=== PATIENT | male | born 1945 | race Caucasian/White ===

== ENCOUNTER 2020-01-02 15:20 | Observation (INO) | payer MEDICARE ==
[~2020-01-02] VITALS: Ht 177.8 cm; Wt 113.9 kg
[~2020-01-02 15:20] MED LIST: AMLODIPINE10 MG PO; ASPI-COR81 M1 PO; CRESTOR10 M1 PO; Carafate1 GM/10 ML PO; FLOMAX0.4 MG PO; FLUOXETINE20 MG PO; FLUOXETINE40 MG PO; FOLIC ACID0.4 MG PO; LOPRESSOR; LOPRESSOR25 MG PO; METRONIDAZOLE500 MG PO; MOBIC7.5 MG PO; PLAVIX75 MG PO; PRILOSEC10 MG PO; PROTONIX40 MG PO; TRAMADOL50 MG PO; TYLENOL500 MG PO; VITAMIN B125000 MCG PO; VITAMIN D350 MC2 PO
[2020-01-02 15:30] VITALS: BP 166/96
[2020-01-02 16:05] LABS: BASO # 0.1 10*3/uL (0.0-0.1); BASO % 0.6 % (0.0-1.0); EOS # 0.1 10*3/uL (0.0-0.4); EOS % 1.3 % (1.0-4.0); HEMATOCRIT 48.6 % (42.0-52.0); LYMPH # 1.5 10*3/uL (1.3-4.4); LYMPH % 16.9 % (27.0-41.0); MEAN CELL VOLUME 87.9 fl (80.0-94.0); MEAN CORPUSCULAR HGB 28.6 pg (27.0-31.0); MEAN CORPUSCULAR HGB CONC 32.5 g/dl (33.0-37.0); MEAN PLATELET VOLUME 9.7 fl (9.6-12.3); MONO # 0.7 10*3/uL (0.1-1.0); MONO % 8.2 % (3.0-9.0); NEUT # 6.3 10*3/uL (2.3-7.9); NEUT % 72.4 % (47.0-73.0); PLATELET COUNT AUTOMATED 249 10*3/uL (130-400); RED BLOOD COUNT 5.53 10*6/uL (4.50-5.90); RED CELL DISTRI WIDTH 12.5 % (0-14.5); WHITE BLOOD COUNT 8.7 10*3/uL (4.8-10.8)
[2020-01-02 16:20] LABS: LIPASE 102 U/L (73-393)
[2020-01-02 16:22] LABS: ACT PARTIAL THROMBO TIME 30.2 SECONDS (20.0-32.1); ALKALINE PHOSPHATASE 107 U/L (45-117); BUN 25 mg/dl (7-24); CHLORIDE 108 mmol/L (98-107); CREATININE 1.29 mg/dL (0.70-1.30); INTERNATIONAL NORM RATIO 0.9 (2.0-3.5); POTASSIUM 3.8 mmol/L (3.5-5.1); SGOT/AST 23 IU/L (3-35); SGPT/ALT 39 U/L (12-78); SODIUM 140 mmol/L (136-145); TOTAL PROTEIN 7.8 gm/dL (6.4-8.2)
[2020-01-02 16:24] LABS: TROPONIN I < 0.015 ng/ml (<0.045)
[2020-01-02 16:48] VITALS: BP 128/76
[2020-01-02 17:32] VITALS: BP 156/81
--- NOTE | 2020-01-02 18:27 | NUR ---
A 74, admitted to , under the services of MICHELLE Benito DO with a diagnosis of SOB, FATIGUE, WEAKNESS. Chief complaint is DIZZINESS. Patient arrived via ambulatory from ER. Monitor applied. Initial assessment completed. Vital signs taken and recorded. MICHELLE BENITO DO notified of admission to the unit. Orders received. See assessment for past medical history, medications and allergies. Patient and/or family oriented to unit. [facility] visitation policy reviewed. Clothing/patient valuable form completed. DHRUV MYERS
[2020-01-02 18:57] VITALS: BP 157/81
--- NOTE | 2020-01-02 18:57 | NUR ---
ORTHOSTATIC BP NEGATIVE. SEE ASSESSMENT.
[2020-01-02] MEDS ORDERED: IMDUR SA60 M1 PO (19:03)
[2020-01-02] MEDS ORDERED: ALDACTONE25 M1 PO (19:28)
[2020-01-02] MEDS ORDERED: PAXIL30 M2 PO (19:29)
[2020-01-02] MEDS ORDERED: FINASTERIDE5 M1 PO (19:29)
[2020-01-02] MEDS ORDERED: CARAFATE1 G1 PO (19:30)
[2020-01-02] MEDS ORDERED: LAMICTAL100 MG PO (19:32)
[2020-01-02] MEDS ORDERED: GABAPENTIN100 M2 PO ×2 (19:32)
[2020-01-02] MEDS ORDERED: LITHIUM CARBON150 MG PO (19:33)
[2020-01-02] MEDS ORDERED: TORSEMIDE20 MG PO (19:34)
[2020-01-02] MEDS ORDERED: ASPIRIN81 M1 PO (19:35)
[2020-01-02] MEDS ORDERED: PROBIOTIC1 EAC2 PO (19:38)
[2020-01-02] MEDS ORDERED: VITAMIN C1000 M5 PO (19:38)
--- NOTE | 2020-01-02 19:40 | NUR ---
RESIDENT INFORMED HOME MED REC WAS UPDATED. SAID SHE WOULD ORDER THEM.
[2020-01-02 20:00] VITALS: BP 141/76
--- NOTE | 2020-01-02 20:40 | NUR ---
SITTING UP IN CHAIR IN ROOM. BODY ALARM INTACT DUE TO PATIENT C/O BEING DIZZY W/EXERTION & SOB MORE SO OVER THE LAST SEVERAL WEEKS. PT. [id number]; PLEASANT. HEP LOCK INTACT TO LEFT ANTECUBITAL; SITE ASYMPTOMATIC. PT. VOICES NO C/O AT THIS TIME; DENIES PAIN. CALL LIGHT WITHIN REACH.
--- NOTE | 2020-01-02 20:45 | NUR ---
CONSULT CALLED & MESSAGE LEFT WITH ANSWERING SERVICE FOR DR. MOSER.
--- NOTE | 2020-01-02 21:00 | NUR ---
, ARIN, CALLED. HAD PASSCODE & UPDATED ON PT. STATUS.
[2020-01-03] VITALS: BP 155/83
--- NOTE | 2020-01-03 02:00 | NUR ---
SITTING UP IN CHAIR IN ROOM. VOICES NO C/O. CALL LIGHT WITHIN REACH.
--- NOTE | 2020-01-03 06:00 | NUR ---
TOOK PO MED WITHOUT DIFFICULTY. VOICES NO C/O PAIN OR DISCOMFORT AT THIS TIME. CALL LIGHT WITHIN REACH.
[2020-01-03 06:02] LABS: BASO # 0.1 10*3/uL (0.0-0.1); BASO % 0.6 % (0.0-1.0); EOS # 0.2 10*3/uL (0.0-0.4); EOS % 2.1 % (1.0-4.0); HEMATOCRIT 46.4 % (42.0-52.0); LYMPH # 2.3 10*3/uL (1.3-4.4); LYMPH % 23.1 % (27.0-41.0); MEAN CELL VOLUME 88.9 fl (80.0-94.0); MEAN CORPUSCULAR HGB 28.5 pg (27.0-31.0); MEAN CORPUSCULAR HGB CONC 32.1 g/dl (33.0-37.0); MEAN PLATELET VOLUME 9.7 fl (9.6-12.3); MONO # 0.9 10*3/uL (0.1-1.0); MONO % 9.5 % (3.0-9.0); NEUT # 6.3 10*3/uL (2.3-7.9); NEUT % 64.2 % (47.0-73.0); PLATELET COUNT AUTOMATED 238 10*3/uL (130-400); RED BLOOD COUNT 5.22 10*6/uL (4.50-5.90); RED CELL DISTRI WIDTH 12.8 % (0-14.5); WHITE BLOOD COUNT 9.8 10*3/uL (4.8-10.8)
[2020-01-03 06:22] LABS: ALBUMIN 3.7 gm/dl (3.1-4.5); ALKALINE PHOSPHATASE 97 U/L (45-117); BUN 27 mg/dl (7-24); CHLORIDE 108 mmol/L (98-107); CHOLESTEROL 113 mg/dL (<200); CREATININE 1.23 mg/dL (0.70-1.30); FREE T4 0.89 ng/dl (0.76-1.46); HDL CHOLESTEROL 29 mg/dl (40-60); LDL CHOLESTEROL 51 mg/dL (9-159); POTASSIUM 3.8 mmol/L (3.5-5.1); SGOT/AST 18 IU/L (3-35); SGPT/ALT 34 U/L (12-78); SODIUM 139 mmol/L (136-145); TOTAL PROTEIN 7.1 gm/dL (6.4-8.2); TRIGLYCERIDES 165 mg/dl (<150); VLDL CHOLESTEROL 33 mg/dL (6-40)
[2020-01-03 07:50] LABS: VITAMIN D, 25-HYDROXY 36.4 ng/mL (30-100)
[2020-01-03 08:00] VITALS: BP 132/74
--- NOTE | 2020-01-03 10:05 | NUR ---
Hand I Cutter in to talk to patient in Room. Patient states that he lives at home with his and his Children live next door. He is independent in his care and does not require SNF or Home Health at this time. There are 10 steps in the home. Physician: Zaina Monae Pharmacy: [facility] Home health services: Declined Home Health at this time Patient's level of ADLs: Independent, still drives Patient has working utilities: Yes DME: None Follow-up physician's appointment after d/c: Per Hospitalist Office Does patient want to access PORTAL?: Not Interested Discharge plan is for Pt. to return home with his , he is independent in his own care and voiced no needs at this time. Patient States his will provide Transportation at discharge. RAJ PIERSON LPN, Hand I Cutter.
--- NOTE | 2020-01-03 11:05 | NUR ---
PT COMPLAINS OF DIZZINESS AND SWEATING, WILL OBTAIN ORTHOSTATIC BLOOD PRESSURES AND NOTIFY MD. CALL LIGHT WITHIN REACH.
--- NOTE | 2020-01-03 11:15 | NUR ---
DR. ALFARO MADE AWARE OF PT POSITIVE ORTHOSTATIC BLOOD PRESSURE RESULTS AND BEING SYMPTOMATIC. NEW ORDERS OBTAINED, PT AWARE OF NEW ORDERS AND IN AGREEMENT.
[2020-01-03 12:00] VITALS: BP 121/76
--- NOTE | 2020-01-03 12:50 | NUR ---
CALLED ANSWERING SERVICE TO MAKE HIM AWARE OF + ORTHOSTATIC BP AND EKG SHOWING ST DEVIATION. AWAITING RETURN CALL.
--- NOTE | 2020-01-03 12:55 | NUR ---
DR. MOSER RETURNED PHONE CALL, STATES KAJAL HIM AND HE WILL BE IN LATER TODAY TO SEE PT.
[2020-01-03 16:00] VITALS: BP 146/86
[2020-01-03 20:00] VITALS: BP 123/67
--- NOTE | 2020-01-03 20:00 | NUR ---
AWAKE & ALERT SITTING UP IN CHAIR. VOICES NO C/O AT THIS TIME. CALL LIGHT WITHIN REACH.
--- NOTE | 2020-01-03 22:00 | NUR ---
TOOK PO MEDICATIONS WITHOUT DIFFICULTY. VOICES NO C/O AT THIS TIME. CALL LIGHT WITHIN REACH.
[2020-01-04] VITALS: BP 133/74
[2020-01-04 08:00] VITALS: BP 154/65
[2020-01-04 12:00] VITALS: BP 129/78
[2020-01-04 16:00] VITALS: BP 125/75
--- NOTE | 2020-01-04 19:50 | NUR ---
PT SEEN AND ASSESSED. PT DENIES ANY C/O AT THIS TIME. PT INSTRUCTED ON LEXISCAN FOR TOMORROW AND THAT HE WILL BE NPO AFTER MIDNIGHT. PT VERBALIZES HIS UNDERSTANDING OF THIS EDUCATION.
[2020-01-04 20:00] VITALS: BP 141/66
[2020-01-05] VITALS: BP 141/74
--- NOTE | 2020-01-05 02:18 | NUR ---
24 HR chart check completed.
[2020-01-05 08:00] VITALS: BP 152/80
--- NOTE | 2020-01-05 09:00 | NUR ---
case managment visits with patient, he states he will return home when discharged. denies any home needs at this time, case management will follow
--- NOTE | 2020-01-05 11:20 | NUR ---
INFORMED CONSENT SIGNED FOR LEXISCAN STRESS TEST WITH DR. MOSER. RESTING EKG SINUS BRADYCARDIA, HR 56, BP 132/74. PULSE OX 97% AND LUNGS CLEAR BILATERALLY. COMPLETED ONE MINUTE OF LEXISCAN PROTOCOL RECEIVING LEXISCAN 0.4MG OVER 10 SEC[address]DS. NO ARRHYTHMIAS OR ST CHANGES NOTED. PT C/O SOB. LAST RECOVERY HR 74, BP 146/78. WAITING NUCLEAR SCANNING IN STABLE CONDITION.
[2020-01-05 12:00] VITALS: BP 145/82
--- NOTE | 2020-01-05 12:09 | NUR ---
PHYSICAL THERAPY Attempted PT evaluation this date with pt off 4th floor at stress test. Will attempt at later time. Ivy Campbell, PT
--- NOTE | 2020-01-05 13:07 | NUR ---
PATIENT BACK UP FROM STRESS TEST. MORNING MEDS TO BE GIVEN. DIET ORDER PUT BACK IN PER DR NEWBY
--- NOTE | 2020-01-05 14:00 | NUR ---
Occupational Therapy referral received and lengthly screen completed. Patient c/o SOB and dizziness as his reason for admission. He reports that "this has been going on for a while" but recently became worse. He is able to ambulate to bathroom and within his room independently. He is performing all his own self care including showering at independent level. He does report that when he has a "spell" he "sits and rests as he has been doing for a while now." Patient is alert, oriented and plans to return home upon d/c. At this time no further OT indicated. Discharge OT referral. Patient in agreement with this plan. Thank you. Fina Carlos OTr/L
[2020-01-05] MEDS ORDERED: METOPROLOL SUCC50 M1 PO (15:09)
--- NOTE | 2020-01-05 15:50 | NUR ---
Discharge instructions reviewed with patient/family. Patient receptive and verbalizes understanding. Follow-up care arranged. Written instructions given to patient/family. PRAVEENA AJ
== END 2020-01-05 17:45 | disposition home or self-care (01) ==
LOC: ED 15:20 → EDHOLD 16:54 → 4E 17:30 → EDHOLD 17:34 → 4E 17:46
PROVIDERS: Emergency Medicine; Internal Medicine; ADMIT Family Medicine; ATTEND Family Medicine
DX: R06.02 Shortness of breath (principal); R53.1 Weakness; R42 Dizziness and giddiness; E78.00 Pure hypercholesterolemia, unspecified; I11.0 Hypertensive heart disease with heart failure; I50.30 Unspecified diastolic (congestive) heart failure; R79.89 Other specified abnormal findings of blood chemistry; J44.9 Chronic obstructive pulmonary disease, unspecified; I25.10 Atherosclerotic heart disease of native coronary artery without angina pectoris; E78.5 Hyperlipidemia, unspecified; F32.9 Major depressive disorder, single episode, unspecified; K21.9 Gastro-esophageal reflux disease without esophagitis; N40.0 Benign prostatic hyperplasia without lower urinary tract symptoms

== ENCOUNTER 2020-01-21 13:43 | Observation (INO) | payer MEDICARE ==
[~2020-01-21] VITALS: Ht 177.8 cm; Wt 116.8 kg
[~2020-01-21 13:43] MED LIST changes: +ALDACTONE25 M1 PO; +ASPIRIN81 M1 PO; +CARAFATE1 G1 PO; +FINASTERIDE5 M1 PO; +GABAPENTIN100 M2 PO; +IMDUR SA60 M1 PO; +LAMICTAL100 MG PO; +LITHIUM CARBON150 MG PO; +METOPROLOL SUCC50 M1 PO; +PAXIL30 M2 PO; +PROBIOTIC1 EAC2 PO; +TORSEMIDE20 MG PO; +VITAMIN C1000 M5 PO
[2020-01-21 13:49] VITALS: BP 144/68
[2020-01-21 14:06] LABS: BASO # 0.1 10*3/uL (0.0-0.1); BASO % 0.6 % (0.0-1.0); EOS # 0.2 10*3/uL (0.0-0.4); EOS % 2.4 % (1.0-4.0); HEMATOCRIT 46.4 % (42.0-52.0); LYMPH # 1.6 10*3/uL (1.3-4.4); LYMPH % 18.2 % (27.0-41.0); MEAN CELL VOLUME 89.7 fl (80.0-94.0); MEAN CORPUSCULAR HGB 28.2 pg (27.0-31.0); MEAN CORPUSCULAR HGB CONC 31.5 g/dl (33.0-37.0); MEAN PLATELET VOLUME 9.9 fl (9.6-12.3); MONO # 0.6 10*3/uL (0.1-1.0); MONO % 6.8 % (3.0-9.0); NEUT # 6.1 10*3/uL (2.3-7.9); NEUT % 71.5 % (47.0-73.0); PLATELET COUNT AUTOMATED 218 10*3/uL (130-400); RED BLOOD COUNT 5.17 10*6/uL (4.50-5.90); RED CELL DISTRI WIDTH 12.5 % (0-14.5); WHITE BLOOD COUNT 8.5 10*3/uL (4.8-10.8)
[2020-01-21 14:23] LABS: ALBUMIN 3.7 gm/dl (3.1-4.5); ALKALINE PHOSPHATASE 102 U/L (45-117); BUN 20 mg/dl (7-24); CHLORIDE 109 mmol/L (98-107); CREATININE 1.31 mg/dL (0.70-1.30); POTASSIUM 4.6 mmol/L (3.5-5.1); SGOT/AST 18 IU/L (3-35); SGPT/ALT 35 U/L (12-78); SODIUM 142 mmol/L (136-145); TOTAL PROTEIN 7.3 gm/dL (6.4-8.2)
[2020-01-21 14:24] LABS: TROPONIN I < 0.015 ng/ml (<0.045)
[2020-01-21 14:40] VITALS: BP 136/56
[2020-01-21 14:40] LABS: ACT PARTIAL THROMBO TIME 30.6 SECONDS (20.0-32.1)
[2020-01-21 16:20] VITALS: BP 153/56
[2020-01-21 17:40] VITALS: BP 157/62
[2020-01-21] MEDS ORDERED: VENT7GM INH (17:58)
[2020-01-21 18:15] VITALS: BP 137/53
[2020-01-21] MEDS ORDERED: LOPRESSOR50 M1 PO (18:50)
[2020-01-21 20:35] VITALS: BP 120/64
[2020-01-22 05:30] VITALS: BP 154/58
[2020-01-22 07:28] LABS: BASO # 0.1 10*3/uL (0.0-0.1); BASO % 0.6 % (0.0-1.0); EOS # 0.2 10*3/uL (0.0-0.4); EOS % 2.3 % (1.0-4.0); HEMATOCRIT 46.7 % (42.0-52.0); LYMPH # 2.2 10*3/uL (1.3-4.4); LYMPH % 25.3 % (27.0-41.0); MEAN CELL VOLUME 89.1 fl (80.0-94.0); MEAN CORPUSCULAR HGB 28.8 pg (27.0-31.0); MEAN CORPUSCULAR HGB CONC 32.3 g/dl (33.0-37.0); MEAN PLATELET VOLUME 10.1 fl (9.6-12.3); MONO # 0.7 10*3/uL (0.1-1.0); MONO % 8.3 % (3.0-9.0); NEUT # 5.4 10*3/uL (2.3-7.9); NEUT % 62.9 % (47.0-73.0); PLATELET COUNT AUTOMATED 211 10*3/uL (130-400); RED BLOOD COUNT 5.24 10*6/uL (4.50-5.90); RED CELL DISTRI WIDTH 12.5 % (0-14.5); WHITE BLOOD COUNT 8.5 10*3/uL (4.8-10.8)
[2020-01-22 07:38] LABS: ACT PARTIAL THROMBO TIME 31.2 SECONDS (20.0-32.1)
[2020-01-22 07:46] LABS: ALBUMIN 3.6 gm/dl (3.1-4.5); ALKALINE PHOSPHATASE 93 U/L (45-117); BUN 24 mg/dl (7-24); CHLORIDE 108 mmol/L (98-107); CHOLESTEROL 116 mg/dL (<200); CREATININE 1.19 mg/dL (0.70-1.30); HDL CHOLESTEROL 36 mg/dl (40-60); POTASSIUM 3.9 mmol/L (3.5-5.1); SGOT/AST 19 IU/L (3-35); SGPT/ALT 33 U/L (12-78); SODIUM 141 mmol/L (136-145); TOTAL PROTEIN 7.1 gm/dL (6.4-8.2)
[2020-01-22 07:52] LABS: FREE T4 0.85 ng/dl (0.76-1.46); TRIGLYCERIDES 143 mg/dl (<150); VLDL CHOLESTEROL 29 mg/dL (6-40)
[2020-01-22 08:00] VITALS: BP 118/50
[2020-01-22 08:39] LABS: VITAMIN D, 25-HYDROXY 45.8 ng/mL (30-100)
[2020-01-22 12:00] VITALS: BP 121/54
[2020-01-22 14:03] LABS: LDL CHOLESTEROL 51 mg/dL (9-159)
[2020-01-22 15:54] VITALS: BP 124/62
[2020-01-22 16:00] VITALS: BP 124/58
== END 2020-01-22 20:18 | disposition home or self-care (01) ==
LOC: ED 13:43 → EDHOLD 16:01 → 4E 18:07
PROVIDERS: Emergency Medicine; Hospitalist; ADMIT Family Medicine; ATTEND Family Medicine
DX: R07.89 Other chest pain (principal); R00.1 Bradycardia, unspecified; N17.0 Acute kidney failure with tubular necrosis; I25.10 Atherosclerotic heart disease of native coronary artery without angina pectoris; I10 Essential (primary) hypertension; E78.5 Hyperlipidemia, unspecified; I11.0 Hypertensive heart disease with heart failure; I50.30 Unspecified diastolic (congestive) heart failure; F32.9 Major depressive disorder, single episode, unspecified; J44.9 Chronic obstructive pulmonary disease, unspecified; N40.0 Benign prostatic hyperplasia without lower urinary tract symptoms

== ENCOUNTER 2021-08-09 15:05 | Emergency (ER) | payer MEDICARE ==
[~2021-08-09] VITALS: Ht 177.8 cm; Wt 117.9 kg
[~2021-08-09 15:05] MED LIST changes: +LOPRESSOR50 M1 PO; +VENT7GM INH
[2021-08-09] MEDS ORDERED: PREDNISONE20 M1 PO (23:20)
[2021-08-09] MEDS ORDERED: CYCLOBENZAPRINE10 MG PO (23:20)
== END 2021-08-09 23:33 | disposition home or self-care (01) ==
LOC: ED 15:05
DX: M54.50 Low back pain, unspecified (principal); Z88.8 Allergy status to other drugs, medicaments and biological substances; Z79.899 Other long term (current) drug therapy

== ENCOUNTER 2022-07-28 06:11 | Emergency (ER) | payer MEDICARE ==
[~2022-07-28] VITALS: Wt 71.2 kg
[~2022-07-28 06:11] MED LIST changes: +CYCLOBENZAPRINE10 MG PO; +PREDNISONE20 M1 PO
[2022-07-28 06:40] LABS: BASO # 0.1 10*3/uL (0.0-0.1); BASO % 0.8 % (0.0-1.0); EOS # 0.2 10*3/uL (0.0-0.4); EOS % 2.9 % (1.0-4.0); HEMATOCRIT 45.3 % (42.0-52.0); LYMPH # 1.8 10*3/uL (1.3-4.4); LYMPH % 23.5 % (27.0-41.0); MEAN CELL VOLUME 90.1 fl (80.0-94.0); MEAN CORPUSCULAR HGB CONC 33.3 g/dl (33.0-37.0); MEAN PLATELET VOLUME 9.5 fl (9.6-12.3); MONO # 0.6 10*3/uL (0.1-1.0); MONO % 8.4 % (3.0-9.0); NEUT # 4.9 10*3/uL (2.3-7.9); NEUT % 63.9 % (47.0-73.0); PLATELET COUNT AUTOMATED 209 10*3/uL (130-400); RED BLOOD COUNT 5.03 10*6/uL (4.50-5.90); RED CELL DISTRI WIDTH 12.6 % (0-14.5); WHITE BLOOD COUNT 7.7 10*3/uL (4.8-10.8)
[2022-07-28 07:00] LABS: ALKALINE PHOSPHATASE 101 U/L (46-116); BUN 17 mg/dl (9-23); CHLORIDE 108 mmol/L (98-107); LIPASE 34 U/L (12-53); POTASSIUM 3.9 mmol/L (3.4-5.1); SGPT/ALT 15 U/L (10-49); TOTAL PROTEIN 6.8 gm/dL (6.0-8.0)
[2022-07-28 08:06] LABS: BILIRUBIN Negative (Negative); BLOOD Negative (Negative); CLARITY Clear (Clear); COLOR Yellow (Yellow); GLUCOSE Negative (Negative); KETONE Negative (Negative); LEUKO ESTERASE Negative (Negative); NITRITE Negative (Negative); PH 6.5 (4.5-8.0); SPECIFIC GRAVITY 1.015 (1.001-1.030); UROBILINOGEN 0.2 E.U./dl (0.0-1.0)
[2022-07-28 08:16] LABS: MUCOUS TRACE
[2022-07-28] MEDS ORDERED: PERCOCET 5-3251 EACH PO (08:42)
== END 2022-07-28 08:55 | disposition home or self-care (01) ==
LOC: ED 06:11
PROVIDERS: Internal Medicine
DX: R10.9 Unspecified abdominal pain (principal); Z88.8 Allergy status to other drugs, medicaments and biological substances; Z79.899 Other long term (current) drug therapy; Z90.49 Acquired absence of other specified parts of digestive tract; Z98.890 Other specified postprocedural states

== ENCOUNTER → 2023-07-18 | Outpatient (CLI) | payer MEDICARE ==
[~2023-07-18] MED LIST changes: +PERCOCET 5-3251 EACH PO
== END | disposition home or self-care (01) ==
LOC: RAD 10:51
PROVIDERS: ATTEND Chiropractor
DX: S23.41XD Sprain of ribs, subsequent encounter (principal); M25.78 Osteophyte, vertebrae; M51.34 Other intervertebral disc degeneration, thoracic region; M41.84 Other forms of scoliosis, thoracic region; M48.04 Spinal stenosis, thoracic region; X58.XXXD Exposure to other specified factors, subsequent encounter